=== PATIENT | female | born 1995 | race Caucasian/White ===

== ENCOUNTER 2020-12-10 11:15 | Emergency (ER) | payer MEDICAID, OTHER ==
[2020-12-10 11:32] VITALS: O2SAT 100
[2020-12-10] MEDS ORDERED: TETRACAINE 0.5% STERI-UNIT SOL OP ONE (11:35)
[2020-12-10] MEDS ORDERED: Fluor-I-Strip/Ful-Flo OP ONE (11:35)
[2020-12-10] MEDS ORDERED: Eye-Stream Solution ONE (11:36)
--- NOTE | 2020-12-10 11:40 | ERPHSYRPT ---
- History of Present Illness Time Seen by Provider: 12/10/20 11:40 Source: patient Exam Limitations: no limitations Patient Subjective Stated Complaint: L eye lid swelling and painful Triage Nursing Assessment: pt to ED c/o L eye lid pain and swelling. noted swelling and resdness on assesment. tender to touch. no blurred or double vision reported. denies traima to area. reports waking Friday with pain and eyelid was "swollen shut" Friday. has not improved since. rates 7/10 pain that does not radiate. Physician History: Patient is a 25-year-old female who presents with left eyelid swelling and pain some redness on awakening Friday morning. She is continue have pain and swelling she denies any itching or pruritus her vision is good. Is along the area of the lash in the upper lid. Timing/Duration: yesterday Location: left eye Severity: moderate Apparent Injury: no Associated Symptoms: pain, burning, redness, matting Chemical Exposure: No Trauma: No Welding Arc/Tanning Bed Exposure: No Allergies/Adverse Reactions: clindamycin Allergy (Verified 12/10/20 11:33) Nausea and Vomiting Hx Tetanus, Diphtheria Vaccination/Date Given: Yes Hx Influenza Vaccination/Date Given: No Hx Pneumococcal Vaccination/Date Given: No Immunizations Up to Date: Yes Travel Risk - International Travel Have you traveled outside of the country in past 3 weeks: No - Coronavirus Screening Are you exhibiting any of the following symptoms?: No Close contact with a COVID-19 positive Pt in past 14-21 Days: No - Review of Systems Constitutional: No Fever, No Chills Eyes: No Symptoms, Discharge, Eye Pain, Eye Redness, Tearing, No Vision Changes, No Foreign Body Sensation Ears, Nose, & Throat: No Symptoms Respiratory: No Cough, No Dyspnea Cardiac: No Chest Pain, No Edema, No Syncope Abdominal/Gastrointestinal: No Abdominal Pain, No Nausea, No Vomiting, No Diarrhea Genitourinary Symptoms: No Dysuria Musculoskeletal: No Back Pain, No Neck Pain Skin: No Rash Neurological: No Dizziness, No Focal Weakness, No Sensory Changes Psychological: No Symptoms Endocrine: No Symptoms All Other Systems: Reviewed and Negative - Past Medical History Pertinent Past Medical History: Yes Neurological History: Migraines History: Other Other Medical History: kidney stones - Past Surgical History Past Surgical History: Yes Musculoskeletal: Orthopedic Surgery Female Surgical History: Section Other Surgical History: 5TH FINGER fracture repair, boxer fx R hand - pins placed. 2019 cyst removed from R wrist. C section Aug 2019 - Social History Smoking Status: Current every day smoker How long have you smoked: 2 years Exposure to second hand smoke: No Drug Use: none Patient Lives Alone: No - Female History Hx Last Menstrual Period: last week Hx Now: No - Nursing Vital Signs Nursing Vital Signs: Initial Vital Signs Temperature 97.9 F 12/10/20 11:20 Pulse Rate 101 H 12/10/20 11:20 Respiratory Rate 18 12/10/20 11:20 Blood Pressure 154/108 12/10/20 11:20 O2 Sat by Pulse Oximetry 100 12/10/20 11:20 Pain Scale Pain Intensity 7 - Physical Exam General Appearance: mild distress Vision Acuity Degree Evaluation Phase: Corrected Vision Acuity Right Eye: 20/20 Vision Acuity Left Eye: 20/50 Eye Exam: left eye: conjunctival inflammation, erythema, eyelid inflammation, bilateral eye: PERRL, EOMI Ears, Nose, Throat Exam: normal ENT inspection Neck Exam: normal inspection, non-tender Respiratory Exam: normal breath sounds, No chest tenderness Cardiovascular Exam: regular rate/rhythm, normal heart sounds Gastrointestinal Exam: soft, normal bowel sounds Extremity Exam: normal inspection, normal range of motion Neurologic: alert, oriented x 3 Skin Exam: normal color, warm, dry SpO2 Interpretation: normal SpO2: 100 O2 Delivery: Room Air - Course Nursing assessment & vital signs reviewed: Yes - Progress Progress: unchanged - Departure Departure Disposition: Home Clinical Impression: Conjunctivitis due to adenovirus, left eye, Acute bacterial tonsillitis Condition: Stable Critical Care Time: No Referrals: LJ MARTINEZ MD [Primary Care Provider] - Instructions: Conjunctivitis ([place]) Prescriptions: Tobramycin/Dexamethasone [Tobramycin-Dexameth Ophth Susp] 2 drops OP Q4H 5 Days #10 drops.susp
[2020-12-10 11:54] VITALS: BP 121/74; PULSE 79
== END 2020-12-10 11:59 | disposition home or self-care (01) ==
LOC: ED 11:15
DX: B30.1 Conjunctivitis due to adenovirus (principal); J03.80 Acute tonsillitis due to other specified organisms; B96.89 Other specified bacterial agents as the cause of diseases classified elsewhere
CPT/HCPCS: 99283; A9270-GY

== ENCOUNTER 2022-11-23 19:53 | Emergency (ER) | payer OTHER ==
[2022-11-23] MEDS ORDERED: Zofran 4 MG/2 ML VIAL IV ONE (20:37)
[2022-11-23] MEDS ORDERED: Sodium Chloride 0.9% 1000 ML 1,000 ML IV STA (20:37)
[2022-11-23] MEDS ORDERED: TORAdol 30 mg Injection IV ONE (20:37)
--- NOTE | 2022-11-23 20:43 | ERPHSYRPT ---
- History of Present Illness Time Seen by Provider: 11/23/22 20:14 Historian: patient Exam Limitations: no limitations Patient Subjective Stated Complaint: pt states she has been having rt side abd pain and diarrhea starting this am. Triage Nursing Assessment: pt alert and oriented, answers questions approp. pt ambulatory wth steady gait noted. respirations noted. abd soft and nontender. bowel sounds present x4. skin warm and dry. Physician History: 27-year-old with history of anxiety depression presented in the ER with chief complaint of right-sided abdominal pain since morning with associated nausea and vomiting times once, nonprojectile, nonbilious and multiple episodes of loose stool. Moderate intensity sharp cramping pain without any significant aggravating or relieving factors. No fever or chills reported. Denies any sick contact. Timing/Duration: today, constant, gradual onset, worse Activities at Onset: rest Quality: cramping, sharpness Abdominal Pain Onset Location: RUQ, epigastric, flank Pain Radiation: no radiation Severity of Pain-Max: moderate Severity of Pain-Current: moderate Modifying Factors: Improves With: nothing Associated Symptoms: diarrhea, nausea, vomiting Previous symptoms: no prior history Allergies/Adverse Reactions: clindamycin Allergy (Verified 11/23/22 20:16) Nausea and Vomiting Hx Tetanus, Diphtheria Vaccination/Date Given: Yes Hx Influenza Vaccination/Date Given: No Hx Pneumococcal Vaccination/Date Given: No Immunizations Up to Date: Yes Travel Risk - International Travel Have you traveled outside of the country in past 3 weeks: No - Coronavirus Screening Are you exhibiting any of the following symptoms?: No Close contact with a COVID-19 positive Pt in past 14-21 Days: No - Vaccine Status Have you 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 - Vaccination Dates Date of 2cond Vaccination (if applicable): 2021 - Review of Systems Constitutional: No Symptoms Eyes: No Symptoms Ears, Nose, & Throat: No Symptoms Respiratory: No Symptoms Cardiac: No Symptoms Abdominal/Gastrointestinal: Abdominal Pain, Nausea, Vomiting, Diarrhea Genitourinary Symptoms: No Symptoms Musculoskeletal: No Symptoms Skin: No Symptoms Neurological: No Symptoms Endocrine: No Symptoms Hematologic/Lymphatic: No Symptoms Immunological/Allergic: No Symptoms - Past Medical History Pertinent Past Medical History: Yes Neurological History: Migraines History: Other Other Medical History: kidney stones - Past Surgical History Past Surgical History: Yes Musculoskeletal: Orthopedic Surgery Female Surgical History: Section Other Surgical History: 5TH FINGER fracture repair, boxer fx R hand - pins placed. 2019 cyst removed from R wrist. C section Aug 2019 - Social History Smoking Status: Former smoker How long have you smoked: 2 years Exposure to second hand smoke: No Drug Use: none Patient Lives Alone: No - Female History Hx Last Menstrual Period: nexplanon Hx Now: (UNKN) - Nursing Vital Signs Nursing Vital Signs: Initial Vital Signs Temperature 98.5 F 11/23/22 20:05 Pulse Rate 100 H 11/23/22 20:05 Respiratory Rate 16 11/23/22 20:05 Blood Pressure 123/79 11/23/22 20:05 O2 Sat by Pulse Oximetry 100 11/23/22 20:05 Pain Scale Pain Intensity 6 - Physical Exam General Appearance: no apparent distress, alert Eye Exam: PERRL/EOMI Ears, Nose, Throat Exam: normal ENT inspection Neck Exam: normal inspection, full range of motion Respiratory Exam: normal breath sounds, lungs clear Cardiovascular Exam: regular rate/rhythm, normal heart sounds Gastrointestinal/Abdomen Exam: soft, normal bowel sounds, tenderness (Epigastrium/right upper quadrant/right flank) Back Exam: normal inspection, normal range of motion Extremity Exam: normal inspection, normal range of motion Neurologic Exam: alert, oriented x 3, cooperative Skin Exam: normal color SpO2 Interpretation: normal SpO2: 100 O2 Delivery: Room Air Ordered Tests: Active Orders 24 hr Category Date Time Status IV Insertion STAT Care 11/23/22 20:37 Active NPO (ED) STAT Care 11/23/22 20:37 Active ABDOMEN AND PELVIS W/0 CONTRAS [CT] Stat Exams 11/23/22 20:37 Taken CBC W DIFF Stat Lab 11/23/22 21:07 Completed CMP Stat Lab 11/23/22 21:07 Completed HCG,QUALITATIVE URINE Stat Lab 11/23/22 21:17 Completed LIPASE Stat Lab 11/23/22 21:07 Completed UA W/RFX UR CULTURE Stat Lab 11/23/22 21:17 Completed Medication Summary Discontinued Medications Generic Name Dose Route Start Last Admin Trade Name Freq PRN Reason Stop Dose Admin Sodium Chloride 1,000 mls @ 999 mls/hr 11/23/22 20:37 11/23/22 21:07 Sodium Chloride 0.9% 1000 Ml IV 11/23/22 21:37 999 mls/hr .Q1H1M STA Administration Sodium Chloride Confirm 11/23/22 21:04 Sodium Chloride 0.9% 1000 Ml Administered 11/23/22 21:05 Dose 1,000 mls @ ud .ROUTE .STK-MED ONE Ketorolac Tromethamine 30 mg 11/23/22 20:37 11/23/22 21:11 Ketorolac Tromethamine 30 Mg/Ml Inj IV 11/23/22 20:38 30 mg STAT ONE Administration Ketorolac Tromethamine Confirm 11/23/22 21:04 Ketorolac Tromethamine 30 Mg/Ml Inj Administered 11/23/22 21:05 Dose 30 mg .ROUTE .STK-MED ONE Ondansetron HCl 4 mg 11/23/22 20:37 11/23/22 21:09 Ondansetron Hcl 4 Mg/2 Ml Vial IV 11/23/22 20:38 4 mg STAT ONE Administration Ondansetron HCl Confirm 11/23/22 21:04 Ondansetron Hcl 4 Mg/2 Ml Vial Administered 11/23/22 21:05 Dose 4 mg .ROUTE .K-[facility] ONE Lab/Rad Data: Laboratory Result Diagrams 11/23/22 21:07 11/23/22 21:07 Laboratory Results 11/23/22 11/23/22 11/23/22 Range/Units 21:17 21:17 21:07 WBC (4.0-10.5) x10^3/uL RBC (4.1-5.4) x10^6/uL Hgb (12.0-16.0) g/dL Hct (35-47) % MCV (78-100) fL MCH (26-32) pg MCHC (32-36) g/dL RDW (11.5-14.0) % Plt Count (150-450) x10^3/uL MPV (7.5-11.0) fL Gran % (36.0-66.0) % Immature Gran % (Auto) (0.00-0.4) % Nucleat RBC Rel Count (0.00-0.1) % Eos # (Auto) (0-0.5) x10^3/uL Immature Gran # (Auto) (0.00-0.03) x10^3u/L Absolute Lymphs (auto) (1.0-4.6) x10^3/uL Absolute Monos (auto) (0.0-1.3) x10^3/uL Absolute Nucleated RBC (0.00-0.01) x10^3u/L Lymphocytes % (24.0-44.0) % Monocytes % (0.0-12.0) % Eosinophils % (0.00-5.0) % Basophils % (0.0-0.4) % Absolute Granulocytes (1.4-6.9) x10^3/uL Basophils # (0-0.4) x10^3/uL Sodium 138 (137-145) mmol/L Potassium 4.0 (3.5-5.1) mmol/L Chloride 106 (98-107) mmol/L Carbon Dioxide 26 (22-30) mmol/L Anion Gap 9.9 (5-15) MEQ/L BUN 18 H (7-17) mg/dL Creatinine 0.81 (0.52-1.04) mg/dL Estimated GFR > 60.0 ML/MIN Glucose 97 (74-106) mg/dL Calcium 8.6 (8.4-10.2) mg/dL Total Bilirubin 1.10 (0.2-1.3) mg/dL AST 38 H (14-36) U/L ALT 27 (0-35) U/L Alkaline Phosphatase 84 (38-126) U/L Serum Total Protein 7.1 (6.3-8.2) g/dL Albumin 4.2 (3.5-5.0) g/dL Lipase 80 (23-300) U/L Urine Color Yellow (Yellow) Urine Appearance Cloudy A (Clear) Urine pH 6.5 (4.6-8.0) Ur Specific [place] >=1.030 A (1.005-1.030) Urine Protein Trace A (Negative) Urine Ketones 15 A (Negative) Urine Blood Negative (Negative) Urine Nitrite Negative (Negative) Urine Bilirubin Negative (Negative) Urine Urobilinogen 1.0 A (0.2) mg/dL Ur Leukocyte Esterase Negative (Negative) U Hyaline Cast (Auto) 0-2 (0-2) /LPF Urine Microscopic RBC 6-10 A (0-5) /HPF Urine Microscopic WBC 0-2 (0-5) /HPF Ur Epithelial Cells Rare (None Seen) /HPF Urine Bacteria None Seen (None Seen) /HPF Urine Culture Reflexed NO (NO) Urine Glucose Negative (Negative) mg/dL Urine HCG, Qual NEGATIVE (Negative) 11/23/22 Range/Units 21:07 WBC 7.8 (4.0-10.5) x10^3/uL RBC 4.72 (4.1-5.4) x10^6/uL Hgb 14.3 (12.0-16.0) g/dL Hct 42.7 (35-47) % MCV 90.5 (78-100) fL MCH 30.3 (26-32) pg MCHC 33.5 (32-36) g/dL RDW 11.7 (11.5-14.0) % Plt Count 198 (150-450) x10^3/uL MPV 9.0 (7.5-11.0) fL Gran % 90.9 H (36.0-66.0) % Immature Gran % (Auto) 0.3 (0.00-0.4) % Nucleat RBC Rel Count 0.0 (0.00-0.1) % Eos # (Auto) 0.01 (0-0.5) x10^3/uL Immature Gran # (Auto) 0.02 (0.00-0.03) x10^3u/L Absolute Lymphs (auto) 0.35 L (1.0-4.6) x10^3/uL Absolute Monos (auto) 0.32 (0.0-1.3) x10^3/uL Absolute Nucleated RBC 0.00 (0.00-0.01) x10^3u/L Lymphocytes % 4.5 L (24.0-44.0) % Monocytes % 4.1 (0.0-12.0) % Eosinophils % 0.1 (0.00-5.0) % Basophils % 0.1 (0.0-0.4) % Absolute Granulocytes 7.08 H (1.4-6.9) x10^3/uL Basophils # 0.01 (0-0.4) x10^3/uL Sodium (137-145) mmol/L Potassium (3.5-5.1) mmol/L Chloride (98-107) mmol/L Carbon Dioxide (22-30) mmol/L Anion Gap (5-15) MEQ/L BUN (7-17) mg/dL Creatinine (0.52-1.04) mg/dL Estimated GFR ML/MIN Glucose (74-106) mg/dL Calcium (8.4-10.2) mg/dL Total Bilirubin (0.2-1.3) mg/dL AST (14-36) U/L ALT (0-35) U/L Alkaline Phosphatase (38-126) U/L Serum Total Protein (6.3-8.2) g/dL Albumin (3.5-5.0) g/dL Lipase (23-300) U/L Urine Color (Yellow) Urine Appearance (Clear) Urine pH (4.6-8.0) Ur Specific [place] (1.005-1.030) Urine Protein (Negative) Urine Ketones (Negative) Urine Blood (Negative) Urine Nitrite (Negative) Urine Bilirubin (Negative) Urine Urobilinogen (0.2) mg/dL Ur Leukocyte Esterase (Negative) U Hyaline Cast (Auto) (0-2) /LPF Urine Microscopic RBC (0-5) /HPF Urine Microscopic WBC (0-5) /HPF Ur Epithelial Cells (None Seen) /HPF Urine Bacteria (None Seen) /HPF Urine Culture Reflexed (NO) Urine Glucose (Negative) mg/dL Urine HCG, Qual (Negative) - Progress Progress: improved, re-examined Progress Note: 11/23/22 23:10 27 years old is evaluated for right-sided abdominal pain with nausea vomiting and diarrhea since morning. Patient has some tenderness in the epigastrium and right upper quadrant. She is given symptomatic treatment for pain and fluid bolus. Work-up showed normal white count, fairly unremarkable chemistries and no UTI. CT abdomen pelvis is negative for any acute intra-abdominal/pelvic pathology. I believe patient has probably viral gastroenteritis, recommended supportive care and will give Zofran to go home. Discussed signs symptoms of worsening needing return to ER which she seems understanding. Stable for discharge. Counseled pt/family regarding: lab results, diagnosis, need for follow-up, rad results - Departure Departure Disposition: Home Clinical Impression: Acute gastroenteritis Condition: Stable Critical Care Time: No Referrals: MINO FRASER MD [Primary Care Provider] - Follow Up with PCP/3 days Instructions: Severe Abdominal Pain, Adult (DC), Viral Gastroenteritis in Adults Additional Instructions: Take Tylenol/Zofran as needed. Follow-up with primary care for reevaluation. Return to ER for intractable abdominal pain/vomiting/diarrhea/fever chills etc. Prescriptions: Ondansetron ODT 4 MG [Zofran Odt 4 mg] 1 ea PO QIDPRN PRN #7 tablet PRN Reason: n/v
[2022-11-23] MEDS ORDERED: Sodium Chloride 0.9% 1000 ML 1,000 ML ONE (21:04)
[2022-11-23] MEDS ORDERED: TORAdol 30 mg Injection ONE (21:04)
[2022-11-23] MEDS ORDERED: Zofran 4 MG/2 ML VIAL ONE (21:04)
[2022-11-23 21:10] LABS: Absolute Neutrophil Ct (ANC) 7.08 x10^3/uL (1.4-6.9); Basophil (Absolute #) 0.01 x10^3/uL (0-0.4); Eosinophil % 0.1 % (0.00-5.0); Eosinophil (Absolute #) 0.01 x10^3/uL (0-0.5); Hematocrit 42.7 % (35-47); Hemoglobin 14.3 g/dL (12.0-16.0); Lymphocyte (Absolute #) 0.35 x10^3/uL (1.0-4.6); Lymphocytes % 4.5 % (24.0-44.0); Mean Cell Volume 90.5 fL (78-100); Mean Corpuscular Hemoglobin 30.3 pg (26-32); Mean Corpuscular Hgb Concent. 33.5 g/dL (32-36); Monocyte (Absolute #) 0.32 x10^3/uL (0.0-1.3); Monocytes % 4.1 % (0.0-12.0); Neutrophil % 90.9 % (36.0-66.0); Platelet Count 198 x10^3/uL (150-450); Red Blood Count 4.72 x10^6/uL (4.1-5.4); Red Cell Distribution Width 11.7 % (11.5-14.0); White Blood Count 7.8 x10^3/uL (4.0-10.5)
[2022-11-23 21:23] LABS: ALBUMIN 4.2 g/dL (3.5-5.0); ALKALINE PHOSPHATASE 84 U/L (38-126); ANION GAP 9.9 MEQ/L (5-15); BLOOD UREA NITROGEN 18 mg/dL (7-17); CHLORIDE 106 mmol/L (98-107); Calcium 8.6 mg/dL (8.4-10.2); Carbon Dioxide 26 mmol/L (22-30); Creatinine 1 0.81 mg/dL (0.52-1.04); EST GLOMERULAR FILTRATION RATE > 60.0 ML/MIN; Glucose 97 mg/dL (74-106); LIPASE 80 U/L (23-300); SGOT/AST 38 U/L (14-36); SGPT/ALT 27 U/L (0-35); SODIUM 138 mmol/L (137-145); Total Protein 7.1 g/dL (6.3-8.2)
[2022-11-23 22:02] LABS: Appearance Cloudy (Clear); Bacteria None Seen /HPF (None Seen); Bilirubin Negative (Negative); Blood Negative (Negative); Epithelial Cells Rare /HPF (None Seen); Glucose Negative (Negative); Hyaline Casts 0-2 /LPF (0-2); Ketones 15 (Negative); Leukocyte Esterase Negative (Negative); Nitrite Negative (Negative); Ph 6.5 (4.6-8.0); Protein,Urine Dip Trace (Negative); Specific Gravity >=1.030 (1.005-1.030); WBC 0-2 /HPF (0-5)
[2022-11-23 22:03] LABS: ADD URINE CULTURE? NO (NO)
[2022-11-23 23:44] VITALS: BP 116/66; PULSE 97; O2SAT 99
--- NOTE | 2022-11-24 08:03 | XRAY ---
Indication: Right abdomen pain, nausea, vomiting, diarrhea. Multiple contiguous axial images obtained through the abdomen and pelvis without contrast. Comparison: September 10, 2014 Lung bases remain clear. Heart not enlarged. Small hiatal hernia. Noncontrasted stomach and bowel loops appear nonobstructed. Appendix not visualized. No free fluid/air. Remaining liver, gallbladder, pancreas, spleen, adrenal glands, kidneys, ureters, bladder, uterus, and aorta are unremarkable for noncontrast exam. Osseous structures intact with stable left L5 spondylolysis without listhesis. Impression: 1. Small hiatal hernia and L5 spondylolysis without listhesis. 2. Remaining CT abdomen/pelvis without contrast exam is negative. Comment: Preliminary interpretation made by C. No critical discrepancy.
== END 2022-11-23 23:58 | disposition home or self-care (01) ==
LOC: ED 19:53
DX: A08.4 Viral intestinal infection, unspecified (principal); R10.11 Right upper quadrant pain; R10.13 Epigastric pain; R11.2 Nausea with vomiting, unspecified; R19.7 Diarrhea, unspecified
CPT/HCPCS: 36000; 36415; 74176; 80053; 81001; 81025; 83690; 85025; 96374; 96375; 99284; J1885; J2405

== ENCOUNTER 2023-09-24 17:03 | Emergency (ER) | payer SELFPAY ==
--- NOTE | 2023-09-24 17:13 | ERPHSYRPT ---
- History of Present Illness Time Seen by Provider: 09/24/23 17:13 Source: patient Exam Limitations: no limitations Physician History: This is an overweight 28-year-old white female patient who presents with body aches evening later in the evening and in the morning she started noticing cough, nasal congestion and sore throat. It has not subsided today. She has no known exposures to individuals with similar symptoms. She denies chest pain. She denies shortness of breath. She denies abdominal pain. She denies nausea vomiting and diarrhea symptoms. Timing/Duration: yesterday Cough Quality/Degree: mild, dry cough Possible Cause: no prior episodes Modifying Factors: Improves With: nothing Associated Symptoms: cough, muscle aches, nasal congestion (Nonproductive), sore throat, No fever, No chills, No chest pain/soreness, No shortness of breath Allergies/Adverse Reactions: clindamycin Allergy (Verified 09/24/23 17:21) Nausea and Vomiting Hx Tetanus, Diphtheria Vaccination/Date Given: Yes Hx Influenza Vaccination/Date Given: No Hx Pneumococcal Vaccination/Date Given: No Travel Risk - International Travel Have you traveled outside of the country in past 3 weeks: No - Coronavirus Screening Are you exhibiting any of the following symptoms?: Yes Symptoms: Cough: New Onset, Headaches/Body Aches/Fatigue Close contact with a COVID-19 positive Pt in past 14-21 Days: No - Vaccine Status Have you recieved a Covid-19 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: 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[employer] - Vaccination Dates Date of 2cond Vaccination (if applicable): 2021 - Review of Systems Constitutional: No Symptoms Eyes: No Symptoms Ears, Nose, & Throat: Nose Congestion, Throat Pain Respiratory: Cough Cardiac: No Symptoms Abdominal/Gastrointestinal: No Symptoms Genitourinary Symptoms: No Symptoms Musculoskeletal: Arthralgias, Myalgias Skin: No Symptoms Neurological: No Symptoms Psychological: No Symptoms Endocrine: No Symptoms Hematologic/Lymphatic: No Symptoms Immunological/Allergic: No Symptoms All Other Systems: Reviewed and Negative - Past Medical History Pertinent Past Medical History: Yes Neurological History: Migraines History: Other Other Medical History: kidney stones - Past Surgical History Past Surgical History: Yes Musculoskeletal: Orthopedic Surgery Female Surgical History: Section Other Surgical History: 5TH FINGER fracture repair, boxer fx R hand - pins luz maria luis. 2019 cyst removed from R wrist. C section Aug 2019 - Social History Smoking Status: Former smoker How long have you smoked: 2 years Exposure to second hand smoke: No Drug Use: none Patient Lives Alone: No - Nursing Vital Signs Nursing Vital Signs: Initial Vital Signs Temperature 98.1 F 09/24/23 17:28 Pulse Rate 89 09/24/23 17:28 Respiratory Rate 18 09/24/23 17:28 Blood Pressure 140/99 09/24/23 17:28 O2 Sat by Pulse Oximetry 99 09/24/23 17:28 Pain Scale Pain Intensity 7 - Physical Exam General Appearance: no apparent distress, alert, obese Eye Exam: PERRL/EOMI, eyes nml inspection Ears, Nose, Throat Exam: normal ENT inspection, moist mucous membranes Neck Exam: normal inspection, non-tender, supple, full range of motion Respiratory Exam: normal breath sounds, lungs clear, airway intact, No chest tenderness, No respiratory distress Cardiovascular Exam: regular rate/rhythm, normal heart sounds, normal peripheral pulses Gastrointestinal/Abdomen Exam: soft, normal bowel sounds, No tenderness Pelvic Exam: not done Rectal Exam: not done Back Exam: normal inspection, normal range of motion, No CVA tenderness, No vertebral tenderness Extremity Exam: normal inspection, normal range of motion, pelvis stable Neurologic Exam: alert, oriented x 3, 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, 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, normal mood/affect, nml cerebellar function, nml station & gait, sensation nml Skin Exam: normal color, warm, dry Lymphatic Exam: No adenopathy SpO2 Interpretation: normal O2 Delivery: Room Air - Course Nursing assessment & vital signs reviewed: Yes Ordered Tests: Medication Summary Discontinued Medications Generic Name Dose Route Start Last Admin Trade Name Jaylen PRN Reason Stop Dose Admin Ceftriaxone Sodium 1,000 mg 09/24/23 18:11 Ceftriaxone Sodium 1000 Mg Inj Vial IM 09/24/23 18:12 STAT ONE Lab/Rad Data: Laboratory Results 09/24/23 Range/Units Unknown Influenza Type A Ag NEGATIVE (NEGATIVE) Influenza Type B Ag NEGATIVE (NEGATIVE) RSV (PCR) NEGATIVE (NEGATIVE) SARS-CoV-2 (PCR) NEGATIVE (NEGATIVE) Group A Strep Antibody DETECTED (NEGATIVE) - Progress Progress: unchanged Air Movement: good Progress Note: 09/24/23 17:37 Patient's medical issue is 1 of low complexity. Level complex in the work-up performed is based on the review of the patient's past medical history, review of the patient's medication list, review the patient's drug allergy list, history present illness and physical findings on examination. Work-up in this patient includes viral studies and group A strep test. Blood Culture(s) Obtained: No Antibiotics given: Yes Counseled pt/family regarding: lab results, diagnosis, need for follow-up Medical Desision Making - Diagnostic Testing Diagnostic test were ordered, analyzed, and reviewed by me: Yes - Risk of complications The pt has a mod risk of morbidity or mortality based on: Need for prescription drug management - Departure Departure Disposition: Home Clinical Impression: Strep pharyngitis Condition: Stable Critical Care Time: No Referrals: MINO FRASER MD [Primary Care Provider] - Follow up/PCP as directed Additional Instructions: Drink plenty of fluids. Use Tylenol and ibuprofen for pain and fever control. Take your antibiotics as prescribed Prescriptions: Azithromycin 250 mg [Zithromax 250 MG TABLET] 250 mg PO ZPACK #6 tablet
[2023-09-24 17:54] VITALS: BP 140/99; PULSE 89; RESP 18; TEMP 98.1; O2SAT 98
[2023-09-24 17:57] LABS: Group A Strep DETECTED (NEGATIVE)
[2023-09-24 18:10] LABS: INFLUENZA A NEGATIVE (NEGATIVE); INFLUENZA B NEGATIVE (NEGATIVE); RESPIRATORY SYNCTIAL VIRUS NEGATIVE (NEGATIVE); SARS-CoV-2 Xpert Express NEGATIVE (NEGATIVE)
[2023-09-24] MEDS ORDERED: Rocephin 1000 MG INJ IM ONE (18:11)
[2023-09-24] MEDS ORDERED: Rocephin 1000 MG INJ ONE (18:29)
[2023-09-24] MEDS ORDERED: XYLOCAINE 1% HCL 20 ML MDV ONE (18:30)
== END 2023-09-24 19:03 | disposition home or self-care (01) ==
LOC: ED 17:03
DX: J02.0 Streptococcal pharyngitis (principal); M79.10 Myalgia, unspecified site; R05.1 Acute cough; R09.81 Nasal congestion
CPT/HCPCS: 0241U; 87651; 96372; 99283; J0696